=== PATIENT | female | born 1955 | race Caucasian/White ===

== ENCOUNTER 2023-06-03 09:00 | Outpatient (CLI) | payer MEDICARE, BC, SELFPAY | END 2023-06-03 09:01 | disposition home or self-care (01) | LOC: AMB 06-05 12:05 | PROVIDERS: PCP Family Medicine; Visit Provider Emergency Medicine | DX: R51.9 Headache, unspecified (principal) | CPT/HCPCS: A0425; A0427 ==

== ENCOUNTER 2023-06-03 09:28 | Emergency (ER) | payer MEDICARE, BC, SELFPAY ==
[2023-06-03] VITALS (18 sets, daily range): BP systolic 144–171; BP diastolic 91–123; PULSE 42–53; RESP 20; TEMP 36.3; O2SAT 94–97; BMI 45.4
--- NOTE | 2023-06-03 09:50 | CT_ITS ---
Patient: PERICO BARRETT Facility:?[facility] Patient ID:?[id number] Site Patient ID:?[id number]. Site :?[id number] Study:?CT-Head WITHOUT-06/03/2023 10:34:03 AM Ordering Physician:CAYETANO Final Report: INDICATION: DIZZINESS, ATAXIA TECHNIQUE: Head CT without contrast. COMPARISON: None. FINDINGS: CSF spaces: Mild global parenchymal volume loss. Brain parenchyma and extra-axial spaces: There are nonspecific low attenuation white matter changes consistent with chronic microvascular disease. No sign of mass effect, hemorrhage, or midline shift. Skull base and calvarium: The visualized paranasal sinuses and mastoid air cells demonstrate no acute or significant findings. The visualized orbits are grossly unremarkable. No skull fractures. IMPRESSION: 1. No evidence of acute intracranial abnormality on this unenhanced CT. 2. Mild chronic microvascular ischemic changes and global parenchymal volume loss. Please note that all CT scans at this facility use dose modulation, iterative reconstruction, and/or weight-based dosing when appropriate to reduce radiation dose to as low as reasonably achievable. Dictated by Tay Hernandez MD @ 06/03/2023 10:53:09 AM Signed by:?Tay Hernandez MD @06/03/2023 10:53:09 AM (Electronic Signature)
--- NOTE | 2023-06-03 09:50 | XR_ITS ---
Patient: PERICO BARRETT Facility:?[facility] Patient ID:?[id number] Site Patient ID:?[id number]. Site :?[id number] Study:?XRay-Chest 2 VIEW-06/03/2023 10:34:29 AM Ordering Physician:CAYETANO Final Report: INDICATION: DIZZINESS, ATAXIA TECHNIQUE: Chest 2 views. COMPARISON: None. FINDINGS: Cardiovascular and mediastinum: Mild enlargement of the cardiomediastinal silhouette. Lungs and pleural spaces: Mild right basilar atelectasis. No sign of pleural effusion. No pneumothorax. Bones and soft tissues: No significant findings. IMPRESSION: Mild cardiomegaly and mild right basilar atelectasis. Dictated by Tay Hernandez MD @ 06/03/2023 10:59:52 AM Signed by:?Tay Hernandez MD @06/03/2023 10:59:52 AM (Electronic Signature)
--- NOTE | 2023-06-03 09:52 | ED.GENADULT ---
HPI - General Adult General Date Seen: 06/03/23 Chief complaint: Dizziness/Vertigo Stated complaint: headache,uneven gait Time Seen by Provider: 06/03/23 09:41 History of Present Illness HPI narrative: I saw this patient arrival by EMS. History is obtained primarily from EMS providers. Per EMS this is a 68 year female that they brought in from home for evaluation of dizziness. She has had dizziness, ataxia, difficulty walking ongoing for the past couple of days. She also complained of a headache this morning. She was hypertensive with a blood pressure about 190 systolic according to EMS. She was bradycardia with heart rate around 50. They were able to establish an IV. They have begun 500 mL bolus saline. Patient is also endorsing urinary frequency. She has a headache. Unclear how that is been going on. No chest pain. No palpitations History from the patient is somewhat difficult to correlate with her current presentation. She says she has been sick since April 24, about 5 or 6 weeks ago. She lists multiple symptoms including intermittent diarrhea and constipation, urinary frequency (that is actually been going on for her ? whole life?). She has a headache. Unclear how long it has been going on. She had a cough but that stopped sometime in April. No current cough. No current chest pain. No current trouble breathing. No palpitations. She says she has been unsteady since she got up to go to the bathroom and middle the night a couple of nights ago. She says she sometimes has to lean to the side. She has been spending most of her time yesterday in bed but was able to get up and get to the bathroom and back and into the kitchen to eat. Ultimately it sounds like the dizziness is the main driving symptom that prompted her to call 911 today per. She is not really having spinning dizziness or definite sensation of movement to suggest vertigo. She says it is more like she gets lightheaded or almost might black out when she stands up. She does say that she needs to hold onto things when she walks. She is not having any focal weakness. No blurry vision or diplopia. No vomiting. She does have a headache. No known head trauma. She says she has a history of high blood pressure but does know what medication she is on. She had been on diuretics in the past but apparently was taken off them because of dizziness. She is also on a statin for high cholesterol. No diabetes. No known coronary disease. No history of stroke. No history of cancer. No history of kidney disease. No history liver disease. No history of autoimmune disease. Primary care is [place]. Related Data Home Medications Medication Instructions Recorded Confirmed atenolol 100 mg tablet 100 mg PO DAILY 06/03/23 06/03/23 atorvastatin 20 mg tablet 20 mg PO DAILY 06/03/23 06/03/23 hydrochlorothiazide 25 mg tablet 25 mg PO DAILY 06/03/23 06/03/23 Allergies Allergy/AdvReac Type Severity Reaction Status Date / Time amoxicillin Allergy Intermediate Unknown Verified 06/03/23 09:39 PFSH PFS Social History Non-prescribed substance use: denies use Exam Narrative: Exam Narrative: Constitutional: Appears well-developed and well-nourished. Alert. Initially somewhat passive on the bed. Lying in bed with her eyes closed as EMS provides report. When the nurses are getting her initial vital signs she is fairly passive. Subsequently when I asked her to sit up for posterior lung exam she is able to easily do so and after that much more alert, eyes open and bright and conversant. HENT: Head: Atraumatic. No depressed skull fracture, Raccoon Eyes, Pierre's sign, or hemotympanum. Face normal. TMs normal Nose: Nose normal. Mouth/Throat: Oral mucosa is clear and moist. no trismus. Pharynx normal. Tonsils symmetric. No tonsillar enlargement, erythema, or exudate. Eyes: Wearing glasses. Conjunctivae normal. EOM normal. Pupils equal, round, and reactive to light. No scleral icterus. Neck: Normal range of motion. Neck supple. No tracheal deviation present. No JVD. No palpable thyromegaly. Cardiovascular: Normal rate, regular rhythm. No gallop. No friction rub. No murmur heard. Symmetric radial artery pulses Pulmonary/Chest: Effort normal. No stridor. No respiratory distress. No wheezes. No rales. No rhonchi . No tenderness. Abdominal: Soft. Bowel sounds normal. No distension. No mass. No tenderness. No rebound. No guarding. No CVA tenderness. Musculoskeletal: RUE: Normal range of motion. No tenderness. No deformity LUE: Normal range of motion. No tenderness. No deformity RLE: Normal range of motion. No edema. No tenderness. No deformity LLE: Normal range of motion. No edema. No tenderness. No deformity Lymph: No cervical adenopathy. Neurological: Mental status normal. Attention normal. Alert and oriented x3. GCS 15. Memory normal. Speech fluent. Cognition normal. Cranial Nerves intact II-XII except I did not formally test gag or visual acuity. EOMI. Palate elevates symmetrically and tongue protrudes in the midline. Strength: 5/5 trapezius on the right and left 5/5 deltoid on the right and left 5/5 biceps on the right and left 5/5 triceps on the right and left 5/5 chemical processing laborer on the right and left 5/5 thumb opposition on the right and left 5/5 finger abduction on the right and left 5/5 hip flexors (L3) on the right and left 5/5 quadriceps (L4) on the right and left 5/5 tibialis anterior on the right and left 5/5 EHL (L5) on the right and left 5/5 gastrocnemius (S1) on the right and left 5/5 hamstring on the right and left Sensation intact to light touch in both upper extremities (C4-T1) Sensation intact to light touch in Both lower extremities (L4-S1). Finger to nose and coordination normal. Gait not assessable due to dizziness and overall weakness. She is able to sit herself up in bed by using both hands to pull on the bedside rales. Skin: Skin is warm and dry. No rash noted. No pallor. Normal capillary refill. Psychiatric: Normal mood. Initially somewhat flat affect and seems withdrawn. Subsequently more alert and conversant Const: Vital Signs, click to edit/add: Vital Signs - 24 hr 06/03/23 09:40 06/03/23 09:48 06/03/23 10:00 Temperature 97.3 F L Pulse Rate 45 L 42 L Pulse Rate [Pulse Oximeter] 53 L Respiratory Rate 20 Blood Pressure Blood Pressure [Le ft Forearm] 144/123 H Pulse Oximetry 96 95 95 Oxygen Delivery Me thod Room Air 06/03/23 10:26 06/03/23 10:30 06/03/23 10:48 Temperature Pulse Rate 48 L 44 L 45 L Pulse Rate [Pulse Oximeter] Respiratory Rate Blood Pressure 171/91 H Blood Pressure [Le ft Forearm] Pulse Oximetry 97 95 97 Oxygen Delivery Me thod 06/03/23 10:49 06/03/23 11:00 06/03/23 11:15 Temperature Pulse Rate 47 L 47 L 45 L Pulse Rate [Pulse Oximeter] Respiratory Rate Blood Pressure Blood Pressure [Le ft Forearm] Pulse Oximetry 97 95 95 Oxygen Delivery Me thod 06/03/23 11:30 06/03/23 11:45 06/03/23 12:00 Temperature Pulse Rate 45 L 45 L 47 L Pulse Rate [Pulse Oximeter] Respiratory Rate Blood Pressure Blood Pressure [Le ft Forearm] Pulse Oximetry 94 95 95 Oxygen Delivery Me thod 06/03/23 12:17 06/03/23 12:30 06/03/23 12:45 Temperature Pulse Rate 45 L 46 L 46 L Pulse Rate [Pulse Oximeter] Respiratory Rate Blood Pressure Blood Pressure [Le ft Forearm] Pulse Oximetry 96 95 95 Oxygen Delivery Me thod 06/03/23 13:00 06/03/23 13:15 06/03/23 13:30 Temperature Pulse Rate 47 L 46 L 50 L Pulse Rate [Pulse Oximeter] Respiratory Rate Blood Pressure Blood Pressure [Le ft Forearm] Pulse Oximetry 95 94 97 Oxygen Delivery Me thod Course Course ED Course: Recheck-feeling better after IV fluids. She is ambulatory in the hallway to go to the bathroom. Vital Signs Vital signs: Initial Vital Signs Temperature 97.3 F L 06/03/23 09:40 Temperature Source Temporal Artery Scan 06/03/23 09:40 Pulse Rate 53 L 06/03/23 09:40 Respiratory Rate 20 06/03/23 09:40 Blood Pressure 144/123 H 06/03/23 09:40 Blood Pressure Mean 130 H 06/03/23 09:40 Pulse Oximetry 96 06/03/23 09:40 Oxygen Delivery Method Room Air 06/03/23 09:40 Vital Signs Temperature 97.3 F L 06/03/23 09:40 Pulse Rate 53 L 06/03/23 09:40 Respiratory Rate 20 06/03/23 09:40 Blood Pressure 144/123 H 06/03/23 09:40 Pulse Oximetry 96 06/03/23 09:40 Oxygen Delivery Method Room Air 06/03/23 09:40 Temperature 97.3 F L 06/03/23 09:40 Pulse Rate 50 L 06/03/23 13:30 Respiratory Rate 20 06/03/23 09:40 Blood Pressure 171/91 H 03/12/24 10:48 Pulse Oximetry 97 06/03/23 13:30 Oxygen Delivery Method Room Air 06/03/23 09:40 Medications Administered Medications: Discontinued Medications Generic Name Dose Route Start Last Admin Trade Name Liz PRN Reason Stop Dose Admin Cephalexin HCl 500 mg 06/03/23 13:33 06/03/23 13:45 Cephalexin 500 Mg Capsule PO 06/03/23 13:34 500 mg ONCE ONE Administration Sodium Chloride 1,000 mls @ 1,000 mls/hr 06/03/23 10:00 06/03/23 11:12 0.9 % Sodium Chloride 1000 Ml IV 06/03/23 10:59 Infused .Q1H BHAVIN Infusion Ketorolac Tromethamine 15 mg 06/03/23 13:35 06/03/23 13:45 Ketorolac 15 Mg/Ml Inj IVP 06/03/23 13:36 15 mg ONCE ONE Administration Medical Decision Making MDM Narrative Medical decision making narrative: Pleasant 68-year-old female brought to the ER today from home by EMS. She has a long list of symptoms but her chief symptom among them is dizziness and trouble walking that is been ongoing for the past couple of days. In terms of the dizziness, she is not endorsing any vertigo type symptoms. No visible nystagmus. No other focal deficits such as diplopia, other brainstem deficit or any other clear signs of stroke. She does have hypertension. Initial blood pressure was 140/120 which I felt was inaccurate. Subsequent blood pressure was 179/90. We did do head CT scan which fortunately shows no sign of any acute intracranial hemorrhage or any obvious cerebral edema. At this point low likelihood for acute ischemic stroke but could not complete be completely ruled out without MRI. With dizziness ongoing for couple of days she is outside the window for IV tPA. She has also been having urinary frequency. Urinalysis is abnormal with scant amount of pyuria and also significant hematuria. Not much that of Chem Edgar in a evangelista on today's specimen. I do think this does represent a true UTI. Will treat with cephalexin 500 b.i.d. for 7 days. First dose administered here in the ER. At this point no clear evidence for urosepsis. EKG shows sinus rhythm and no arrhythmia because dizziness. Kidney function and electrolytes are normal. Blood sugar normal. She is not having any chest pain but consider atypical presentation of ACS. EKG is nonischemic and troponin is normal. Thyroid normal. At this point she is feeling better after IV fluid suggesting that probably a combination of dehydration and UTI or causing her dizziness. She feels comfortable discharging to home. Recommend return to the ER with any worsening dizziness or other symptoms of UTI such as fever, flank pain, nausea vomiting, or weakness. Need for outpatient follow-up to confirm resolution of hematuria. Questions answered. Patient comfortable plan for discharge and will do [facility] med prescription for cephalexin. Lab Data Labs: Lab Results 06/03/23 06/03/23 Range/Units 10:00 10:41 WBC 7.81 (4.50-11.00) K/uL RBC 4.55 (4.00-5.20) m/uL Hgb 13.4 (12.0-16.0) gm/dL Hct 40.5 (33.0-51.0) % MCV 89 (80-100) fL MCH 30 (26-34) pg MCHC 33 (32-36) gm/dL RDW Coeff of Jacob 13.6 (11.5-15.5) % Plt Count 266 (140-440) K/uL Neut % (Auto) 69.9 (42.0-72.0) % Lymph % (Auto) 18.8 L (20-44) % [place] % (Auto) 8.7 (0.0-11.0) % Eos % (Auto) 2.4 (0.0-7.0) % Baso % (Auto) 0.1 (0.0-3.0) % Neut # (Auto) 5.45 (1.7-7.0) K/uL Lymph # (Auto) 1.50 (0.90-2.90) K/uL [place] # (Auto) 0.70 (0.00-0.90) K/UL Eos # (Auto) 0.19 (0.00-0.50) K/uL Baso # (Auto) 0.01 (0.00-0.30) K/uL Abs Immat Gran (auto) 0.01 (0.00-0.30) K/uL Imm/Tot Granulo (auto) 0.1 % Sodium 138 (135-149) mmol/L Potassium 3.8 (3.6-5.1) mmol/L Chloride 105 (96-114) mmol/L Carbon Dioxide 26 (20-32) mmol/L Anion Gap 7 (7-15) mEq/L BUN 20 (7-30) mg/dL Creatinine 0.6 (0.5-1.5) mg/dL Estimated Creat Clear 51.63 Estimated GFR 97 ml/min Glucose 107 (60-115) mg/dL Lactate 1.2 (0.5-1.9) mmol/L Calcium 9.5 (8.4-10.6) mg/dL Troponin I < 0.01 L (0.01-0.04) ng/mL TSH 3.940 (0.270-4.200) uIU/mL Urine Color Brown A (Yellow) Urine Appearance Slightly Cloudy A (Clear) Urine pH 6.0 (5.0-8.5) Ur Specific [place] 1.025 (1.000-1.030) Urine Protein 3+ A (Negative) Urine Glucose (UA) Negative (Negative) Urine Ketones Negative (Negative) Urine Blood 3+ A (Negative) Urine Nitrite Negative (Negative) Urine Bilirubin 1+ A (Negative) Urine Urobilinogen 0.2 (0.2-1.0) Ur Leukocyte Esterase Negative (Negative) Urine RBC >100 A (0-2) Urine WBC 5-10 A (0-5) Ur Squamous Epith Cells Few (None-Few) Other Sediment MODERATE YEAST (None) Urine Bacteria Moderate A (None) Imaging Data CT scan - head: Attestation: I have reviewed the pertinent imaging results. Radiologist's impression: IMPRESSION: 1. No evidence of acute intracranial abnormality on this unenhanced CT. 2. Mild chronic microvascular ischemic changes and global parenchymal volume loss. Chest x-ray: Attestation: I have reviewed the pertinent imaging results. Radiologist's impression: IMPRESSION: Mild cardiomegaly and mild right basilar atelectasis. ECG Data Attestation: I personally reviewed and interpreted this ECG as follows: Interpretation: sinus bradycardia. 49 DC 140 QRS axis normal axis ST segment/T wave: no ST segment elevation/depression QTc: 411 Discharge Plan Discharge Clinical Impression: Hematuria, Dizziness, Cardiomegaly, Acute UTI, Hypertension Patient Disposition: Home, Self-Care Condition: Stable Instructions: Urinary Tract Infection in Women (ED), Hematuria (ED), Hypertension (ED) Additional Instructions: We suspect that a lot of your dizziness and symptoms are being caused by your urinary tract infection. Please take the antibiotic (cephalexin) twice daily for 7 days. This should treat your infection. Please follow-up with your doctor for repeat urine test after your infection is treated to make sure all of the blood is gone from your urine. We also notice that your blood pressure is higher than goal today. Continue on your blood pressure medications. Recheck your blood pressure with her doctor within the next 1-2 weeks. I suspect that your blood pressure is also causing mild enlargement of your heart. It is important to get your blood pressure under good control so that it does not cause further enlargement of your heart muscle. If you have worsening symptoms such as fever, weakness, worsening dizziness, nausea vomiting, or if you have any concerns, return to the ER right away Prescriptions: No Action atorvastatin 20 mg tablet 20 mg PO DAILY atenolol 100 mg tablet 100 mg PO DAILY hydrochlorothiazide 25 mg tablet 25 mg PO DAILY Follow Up/Referrals: Kajal Lopez DO [Primary Care Provider] - Stand Alone Forms: [employer] Info Instructions
[2023-06-03] MEDS: 0.9 % SODIUM CHLORIDE 1000 ml 1,000 ML IV (10:00)
[2023-06-03 10:12] LABS: Lactate Sepsis w/Reflex* 1.2 mmol/L (0.5-1.9)
[2023-06-03 10:21] LABS: Basophils Absolute Auto 0.01 K/uL (0.00-0.30); Basophils Percent Auto 0.1 % (0.0-3.0); Eosinophils Absolute Auto 0.19 K/uL (0.00-0.50); Eosinophils Percent Auto 2.4 % (0.0-7.0); Hematocrit 40.5 % (33.0-51.0); Hemoglobin* 13.4 gm/dL (12.0-16.0); Immature Granulocytes Abs Auto 0.01 K/uL (0.00-0.30); Immature Granulocytes Pct Auto 0.1 %; Lymphocytes Percent Auto 18.8 % (20-44); Mean Corpuscular HGB Conc 33 gm/dL (32-36); Mean Corpuscular Hemoglobin 30 pg (26-34); Mean Corpuscular Volume 89 fL (80-100); Monocytes Percent Auto 8.7 % (0.0-11.0); Neutrophils Absolute Auto 5.45 K/uL (1.7-7.0); Neutrophils Percent Auto 69.9 % (42.0-72.0); Platelet Count* 266 K/uL (140-440); RDW Coefficient of Variation % 13.6 % (11.5-15.5); Red Blood Count 4.55 m/uL (4.00-5.20); White Blood Count* 7.81 K/uL (4.50-11.00)
[2023-06-03 10:24] LABS: Slide Review Reflex No
[2023-06-03 10:39] LABS: Chloride* 105 mmol/L (96-114); Potassium* 3.8 mmol/L (3.6-5.1); Sodium* 138 mmol/L (135-149)
[2023-06-03 10:41] LABS: Creatinine* 0.6 mg/dL (0.5-1.5); Est. Creatinine Clearance* 51.63; Estimated Glomerular Filt Rate 97 ml/min
[2023-06-03 10:42] LABS: Anion Gap 7 mEq/L (7-15); Blood Urea Nitrogen* 20 mg/dL (7-30); Calcium* 9.5 mg/dL (8.4-10.6); Carbon Dioxide* 26 mmol/L (20-32); Glucose* 107 mg/dL (60-115)
[2023-06-03 10:50] LABS: Appearance Urine Slightly Cloudy (Clear); Bilirubin Urine 1+ (Negative); Blood Urine 3+ (Negative); Color Urine Brown (Yellow); Glucose Urine Negative (Negative); Ketones Urine Negative (Negative); Leukocyte Esterase Urine Negative (Negative); Nitrite Urine Negative (Negative); Protein Urine 3+ (Negative); Specific Gravity Urine 1.025 (1.000-1.030); Urobilinogen Urine 0.2 (0.2-1.0)
[2023-06-03 10:59] LABS: Troponin I* < 0.01 ng/mL (0.01-0.04)
[2023-06-03 11:02] LABS: RBC Urine >100 (0-2)
[2023-06-03 11:03] LABS: Bacteria Urine Moderate; Other Sediment Urine MODERATE YEAST; Squamous Epithelial Cell Urine Few (None-Few)
[2023-06-03] MEDS: KETOROLAC 15 MG/ML inj IVP (13:45)
[2023-06-03] MEDS: cephALEXin 500 MG CAPSULE PO (13:45)
== END 2023-06-03 15:00 | disposition home or self-care (01) ==
PROVIDERS: Emergency Provider Emergency Medicine; PCP Family Medicine
DX: N39.0 Urinary tract infection, site not specified (principal); R31.9 Hematuria, unspecified; I51.7 Cardiomegaly; I10 Essential (primary) hypertension
CPT/HCPCS: 36415; 70450; 71046; 80048; 81001; 83605; 84443; 84484; 85025; 87086; 93005; 96361; 96374; 99284; 99285; A9270; J1885; J7030

== ENCOUNTER 2023-07-18 07:32 | Emergency (ER) | payer MEDICARE, BC, SELFPAY ==
[2023-07-18 07:34] VITALS: BP 166/94; PULSE 57; RESP 18; TEMP 35.4; O2SAT 95; BMI 45.4
--- NOTE | 2023-07-18 08:06 | ED_ITS ---
HPI - General Adult General Chief complaint: Nausea/Vomiting Stated complaint: gagging / sore neck Time Seen by Provider: 07/18/23 07:54 History of Present Illness HPI narrative: This 68-year-old female comes in reporting chronic neck pain and recurrent gagging and nausea. She states that these are ongoing symptoms and that she has not taken any medications for them. She denies having any recent injury event or strenuous activity to trigger neck pain. She states that the neck pain seems to come and go but it has been more significant recently and she states that she did not sleep much last night because of the neck pain. She does not report any pain radiating down either arm. Similarly her nausea and vomiting episodes are not new for her. She arrives here with reassuring vital signs. Related Data Home Medications Medication Instructions Recorded Confirmed atenolol 100 mg tablet 100 mg PO DAILY 06/03/23 07/18/23 atorvastatin 20 mg tablet 20 mg PO DAILY 06/03/23 07/18/23 fluoxetine 20 mg capsule 60 mg PO QAM 07/18/23 07/18/23 Previous Rx's Medication Instructions Recorded cyclobenzaprine 10 mg tablet 10 mg PO TID #15 tabs 07/18/23 ketorolac 10 mg tablet 10 mg PO Q8H 5 days #15 tabs 07/18/23 methylprednisolone 4 mg tablets in See Rx Instructions PO .COMPLEX 07/18/23 a dose pack (Medrol (Elias)) #21 ea ondansetron HCl 4 mg tablet 4 mg PO Q6H #20 tabs 07/18/23 Allergies Allergy/AdvReac Type Severity Reaction Status Date / Time amoxicillin Allergy Intermediate Unknown Verified 07/18/23 07:40 Review of Systems Status of ROS: Reports: 10 or more systems reviewed and unremarkable except as noted in History and below Narrative: Constitutional: No fevers, no weight gain or loss. Eyes: No discharge. No vision changes. HENT: No congestion, no sore throat, no ear pain. Cardiovascular: No chest pain, no palpitations. Respiratory: No shortness of breath, no wheezes, no cough. Gastrointestinal: No abdominal pain, no diarrhea. Nausea and dry heaves. Genitourinary: No dysuria, no hematuria. Musculoskeletal: Normal range of motion. She reports chronic neck pain. Skin: No rashes, no pruritis. Neurological: No dizziness, weakness, sensory change, speech change. Endo/Heme/Allergies: No bruising or bleeding. No polydipsia. Pysch: no suicidality, no anxiety, no insomnia. All other systems reviewed and are negative. [facility] Medical History (Updated 07/18/23 @ 08:11 by Rey Barrientos MD) Hyperlipemia ?E78.5 - Hyperlipidemia, unspecified (ICD-10) Tachycardia ?R00.0 - Tachycardia, unspecified (ICD-10) Hypertension ?I10 - Essential (primary) hypertension (ICD-10) Depression ?F32.A - Depression, unspecified (ICD-10) Social History Smoking Status: Former smoker Do you use any of these nicotine containing products: None How often do you have a drink containing alcohol: never AUDIT-C Alcohol total score: 0 Non-prescribed substance use: denies use Exam Narrative: Exam Narrative: Constitutional: Well-developed, well-nourished, no acute distress. HEENT: Normocephalic, atraumatic. Neck: Normal range of motion. Supple. Diffuse tenderness in the posterior neck. No midline tenderness when palpating along the spine. Heart: Regular. No murmurs. Normal rate. Intact distal pulses. Lungs: Clear to auscultation. No chest discomfort. No wheezes, rhonchi, or rales. Abdomen: Normal bowel sounds. Nontender. No rebound tenderness. Genitalia: Deferred. Back: No midline tenderness. Normal range of motion. Extremities: Normal range of motion. No injury. Skin: Intact. No rash. Warm. No erythema or pallor. Neurologic: No altered sensation. No weakness. Alert and oriented. Psychiatric: No suicidality. No anxiety or depression. No insomnia. Nursing notes and vitals signs are reviewed. Const: Vital Signs, click to edit/add: Vital Signs - 24 hr 07/18/23 07:34 Temperature 95.7 F L Pulse Rate [Pulse Oximeter] 57 L Respiratory Rate 18 Blood Pressure [Ri ght Upper Arm] 166/94 H Pulse Oximetry 95 Oxygen Delivery Me thod Room Air Course Vital Signs Vital signs: Initial Vital Signs Temperature 95.7 F L 07/18/23 07:34 Temperature Source Temporal Artery Scan 07/18/23 07:34 Pulse Rate 57 L 07/18/23 07:34 Respiratory Rate 18 07/18/23 07:34 Blood Pressure 166/94 H 07/18/23 07:34 Blood Pressure Mean 118 H 07/18/23 07:34 Blood Pressure Position Sitting 07/18/23 07:34 Pulse Oximetry 95 07/18/23 07:34 Oxygen Delivery Method Room Air 07/18/23 07:34 Vital Signs Temperature 95.7 F L 07/18/23 07:34 Pulse Rate 57 L 07/18/23 07:34 Respiratory Rate 18 07/18/23 07:34 Blood Pressure 166/94 H 07/18/23 07:34 Pulse Oximetry 95 07/18/23 07:34 Oxygen Delivery Method Room Air 07/18/23 07:34 Temperature 95.7 F L 07/18/23 07:34 Pulse Rate 57 L 07/18/23 07:34 Respiratory Rate 18 07/18/23 07:34 Blood Pressure 166/94 H 07/18/23 07:34 Pulse Oximetry 95 07/18/23 07:34 Oxygen Delivery Method Room Air 07/18/23 07:34 Medical Decision Making MDM Narrative Medical decision making narrative: This patient comes in with chronic symptoms of nausea and vomiting with neck pain as described above. I did discuss lab and imaging options but these were dismissed for now. The patient is interested in having some treatment for her symptoms. I did prescribe Zofran, Toradol, Flexeril, and Medrol Dosepak. I advised her to follow-up with her primary physician and consider physical therapy. Discharge Plan Discharge Clinical Impression: Neck pain, Nausea & vomiting Patient Disposition: Home, Self-Care Condition: Stable Additional Instructions: Take medication as needed and indicated. Follow-up with primary physician for ongoing management. Return if worsening symptoms occur. Prescriptions: New cyclobenzaprine 10 mg tablet 10 mg PO TID Qty: 15 0RF ondansetron HCl 4 mg tablet 4 mg PO Q6H Qty: 20 0RF ketorolac 10 mg tablet 10 mg PO Q8H 5 Days Qty: 15 0RF methylprednisolone [Medrol (Elias)] 4 mg tablets,dose pack See Rx Instructions .ROUTE .COMPLEX Qty: 21 0RF Rx Instructions: orally per package directions No Action atorvastatin 20 mg tablet 20 mg PO DAILY atenolol 100 mg tablet 100 mg PO DAILY fluoxetine 20 mg capsule 60 mg PO QAM Follow Up/Referrals: Kajal Lopez DO [Primary Care Provider] - Stand Alone Forms: [employer] Info Instructions
== END 2023-07-18 08:22 | disposition home or self-care (01) ==
LOC: ED 08:14
PROVIDERS: Emergency Provider Emergency Medicine Emergency Medical Services; PCP Family Medicine
DX: M54.2 Cervicalgia (principal); R11.2 Nausea with vomiting, unspecified
CPT/HCPCS: 99283; 99284

== ENCOUNTER 2024-04-20 04:47 | Emergency (ER) | payer MEDICARE, BC, SELFPAY ==
[2024-04-20] VITALS (11 sets, daily range): BP systolic 170–238; BP diastolic 112–160; PULSE 56–68; RESP 20–21; TEMP 36.5; O2SAT 94–97; BMI 48.4
[2024-04-20 05:19] LABS: Lactate Sepsis w/Reflex* 4.2 mmol/L (0.5-1.9)
[2024-04-20 05:21] LABS: Creatinine, Point-of-Care* 0.7 mg/dl (0.6-1.3)
--- NOTE | 2024-04-20 05:21 | ED.GENADULT ---
HPI - General Adult General Chief complaint: Urogenital Problems, Female Stated complaint: bladder infection Time Seen by Provider: 04/20/24 05:21 History of Present Illness HPI narrative: Shortness of breath and urinary urgency and frequency. Pt is clammy and cold. Pt states she has trouble with UTI's 69-year-old woman presenting to the emergency department just not feeling so well. A couple of days ago she started have a back ache. She already notes that she has a little trouble controlling her urine but became more difficult than. She has not measured a fever. No other area of pain. She is not having abdominal pain. She is not nauseated. Does mention that she has had urinary tract infections before. Denies any rashes. Seen less this facility in June 2019 for at before that of May of the same year with a urinary tract infection though culture results were mixed. She is noted to be short of breath on transfer to the bed. When questioned about her blood pressure she is not particularly surprised that it is rather elevated here today. Informed by nursing of arrival and to start normal saline. She is reporting that she is feeling a little better already. Related Data Home Medications ?Medication ?Instructions ?Recorded ?Confirmed atenolol 100 mg tablet 100 mg PO DAILY 06/03/23 07/18/23 atorvastatin 20 mg tablet 20 mg PO DAILY 06/03/23 07/18/23 fluoxetine 20 mg capsule 60 mg PO QAM 07/18/23 07/18/23 Previous Rx's ?Medication ?Instructions ?Recorded cyclobenzaprine 10 mg tablet 10 mg PO TID #15 tabs 07/18/23 ketorolac 10 mg tablet 10 mg PO Q8H 5 days #15 tabs 07/18/23 methylprednisolone 4 mg tablets in See Rx Instructions PO .COMPLEX 07/18/23 a dose pack (Medrol (Elias)) #21 ea ondansetron HCl 4 mg tablet 4 mg PO Q6H #20 tabs 07/18/23 Allergies Allergy/AdvReac Type Severity Reaction Status Date / Time amoxicillin Allergy Intermediate Unknown Verified 04/20/24 04:58 Review of Systems Status of ROS: Reports: 6 or more systems reviewed and unremarkable except as noted in History and below [facility] PFS Medical History Hyperlipemia ?E78.5 - Hyperlipidemia, unspecified (ICD-10) Tachycardia ?R00.0 - Tachycardia, unspecified (ICD-10) Hypertension ?I10 - Essential (primary) hypertension (ICD-10) Depression ?F32.A - Depression, unspecified (ICD-10) Social History Smoking Status: Former smoker Do you use any of these nicotine containing products: None How often do you have a drink containing alcohol: never AUDIT-C Alcohol total score: 0 Non-prescribed substance use: denies use Exam Narrative: Exam Narrative: Pleasant. NAD. Appears a little tired. But alerts to answer questions quickly. Dentition in disrepair. Oropharynx is sticky. Skin is warm and dry. Heart is in regular rate and rhythm. Distant. Lungs appear to be clear. Abdomen is soft and nontender. Obese. Lower extremities with excessive fatty tissue but are without edema. Is well-perfused peripherally. Toenails are excessively long Const: Vital Signs, click to edit/add: Vital Signs - 24 hr 04/20/24 04:52 04/20/24 05:14 04/20/24 05:32 Temperature 97.7 F Pulse Rate 60 Pulse Rate [Right Pulse Oximeter] 61 Respiratory Rate 21 Blood Pressure 202/118 H Blood Pressure [Ri ght Upper Arm] 238/123 H Pulse Oximetry 94 95 94 Oxygen Delivery Me thod Room Air 04/20/24 06:02 04/20/24 06:32 04/20/24 06:33 Temperature Pulse Rate 64 58 L 56 L Pulse Rate [Right Pulse Oximeter] Respiratory Rate 20 Blood Pressure 204/112 H 191/119 H Blood Pressure [Ri ght Upper Arm] Pulse Oximetry 95 95 95 Oxygen Delivery Me thod 04/20/24 07:00 04/20/24 07:02 04/20/24 07:03 Temperature Pulse Rate 68 63 63 Pulse Rate [Right Pulse Oximeter] Respiratory Rate Blood Pressure 170/160 H Blood Pressure [Ri ght Upper Arm] Pulse Oximetry 95 97 96 Oxygen Delivery Me thod 04/20/24 07:16 04/20/24 07:33 Temperature Pulse Rate Pulse Rate [Right Pulse Oximeter] Respiratory Rate Blood Pressure 212/128 H 210/139 H Blood Pressure [Ri ght Upper Arm] Pulse Oximetry Oxygen Delivery Me thod Documenting provider has reviewed patient's vital signs: yes Course Vital Signs Vital signs: Initial Vital Signs Temperature 97.7 F 04/20/24 04:52 Temperature Source Temporal Artery Scan 04/20/24 04:52 Pulse Rate 61 04/20/24 04:52 Pulse Rhythm Regular 04/20/24 04:52 Pulse Strength 3+ Normal 04/20/24 04:52 Respiratory Rate 21 04/20/24 04:52 Blood Pressure 238/123 H 04/20/24 04:52 Blood Pressure Mean 161 H 04/20/24 04:52 Blood Pressure Position Supine 04/20/24 04:52 Pulse Oximetry 94 04/20/24 04:52 Oxygen Delivery Method Room Air 04/20/24 04:52 Vital Signs Temperature 97.7 F 04/20/24 04:52 Pulse Rate 61 04/20/24 04:52 Respiratory Rate 21 04/20/24 04:52 Blood Pressure 238/123 H 04/20/24 04:52 Pulse Oximetry 94 04/20/24 04:52 Oxygen Delivery Method Room Air 04/20/24 04:52 Temperature 97.7 F 04/20/24 04:52 Pulse Rate 63 04/20/24 07:03 Respiratory Rate 20 04/20/24 06:32 Blood Pressure 210/139 H 04/20/24 07:33 Pulse Oximetry 96 04/20/24 07:03 Oxygen Delivery Method Room Air 04/20/24 04:52 Medications Administered Medications: Discontinued Medications Generic Name Dose Route Start Last Admin Trade Name Freq PRN Reason Stop Dose Admin Amlodipine Besylate 5 mg 04/20/24 08:04 04/20/24 08:24 Amlodipine 5 Mg Tablet PO 04/20/24 08:05 5 mg ONCE ONE Administration Sodium Chloride 1,000 mls @ 1,000 mls/hr 04/20/24 05:37 04/20/24 06:18 0.9 % Sodium Chloride 1000 Ml IV 04/20/24 06:36 Infused .Q1H ONE Infusion Lactated Ringer's 1,000 mls @ 1,000 mls/hr 04/20/24 05:37 04/20/24 07:04 Lactated Ringers 1000 Ml IV 04/20/24 06:36 Infused .Q1H ONE Infusion Ceftriaxone Sodium 1 gm/ 100 mls @ 200 mls/hr 04/20/24 05:38 04/20/24 06:18 Sodium Chloride IVPB 04/20/24 05:39 Infused ONCE ONE Infusion Medical Decision Making MDM Narrative Medical decision making narrative: Appears to be describing symptoms of urinary tract infection. Blood pressure is rather elevated. May have evolving sepsis picture. Back discomfort may well be chronic. Body habitus would contribute. I think is also rather deconditioned as explanation for shortness of breath. Initiated on IV fluids. Initial lactate returns at 4.2. Urinalysis looks positive for infection however without nitrate and only with trace leukocyte esterase. Last collection here looks similar, although admittedly today looks worse, did not grow out useful cultures. I wonder how much of this might be chronic. Received L normal saline as well as L of lactated Ringer's. Given a g of Rocephin IV. Recheck of lactate is 2.1. White count is normal. Noting high blood pressures I review medications. Also finding clinical documentation to confirm. Appears to take atenolol in part for tachycardia as well as losartan. Notes that blood pressure tends to be high. She is not being seen regularly in clinic she reports. Is unsure of primary care provider. Given dose of amlodipine 5 mg here in the emergency department. Is requesting departure prior to seeing effect. Reportedly feels quite well. I do spend some time trimming all toenails Noted to be transferring and briefly appears winded. I think this is baseline. To patient discharge plan for further discussion Please do schedule follow-up with primary care at your clinic. You need to review your plan for blood pressure medication. You might try lower dose amlodipine. He received a dose of that here today in the emergency department. I would encourage you to check your blood pressure later today, maybe in a couple of hours. Prescribing you the antibiotic cephalexin from [facility]. A urine culture will be pending here. If it appears that the choice of antibiotic needs to be changed, we will call you. Omeprazole is typically not a medication you just take one day and not the next; it usually takes a little more time to work. Medication that you might take for heartburn at the time you feel it, would be something like famotidine instead. However if omeprazole seems to work for you, I guess that is fine. Medical Records Medical records reviewed: Yes I reviewed the patient's medical records Lab Data Lab results reviewed: Yes I reviewed the patient's lab results Labs: Lab Results 04/20/24 04/20/24 04/20/24 Range/Units 05:00 05:07 05:08 WBC 10.80 (4.50-11.00) K/uL RBC 5.34 H (4.00-5.20) m/uL Hgb 15.3 (12.0-16.0) gm/dL Hct 45.7 (33.0-51.0) % MCV 86 (80-100) fL MCH 29 (26-34) pg MCHC 34 (32-36) gm/dL RDW Coeff of Jacob 12.8 (11.5-15.5) % Plt Count 270 (140-440) K/uL Neut % (Auto) 73.8 H (42.0-72.0) % Lymph % (Auto) 16.1 L (20-44) % Obion % (Auto) 8.1 (0.0-11.0) % Eos % (Auto) 1.5 (0.0-7.0) % Baso % (Auto) 0.3 (0.0-3.0) % Neut # (Auto) 8.00 H (1.7-7.0) K/uL Lymph # (Auto) 1.70 (0.90-2.90) K/uL Obion # (Auto) 0.90 (0.00-0.90) K/UL Eos # (Auto) 0.16 (0.00-0.50) K/uL Baso # (Auto) 0.03 (0.00-0.30) K/uL Abs Immat Gran (auto) 0.02 (0.00-0.30) K/uL Imm/Tot Granulo (auto) 0.2 % Sodium 138 (135-149) mmol/L Potassium 4.1 (3.6-5.1) mmol/L Chloride 104 (96-114) mmol/L Carbon Dioxide 19 L (20-32) mmol/L Anion Gap 15 (7-15) mEq/L BUN 16 (7-30) mg/dL Creatinine 0.6 (0.5-1.5) mg/dL Estimated Creat Clear 49.00 Estimated GFR 97 ml/min Glucose 128 H (60-115) mg/dL Lactate 4.2 H* (0.5-1.9) mmol/L Calcium 9.6 (8.4-10.6) mg/dL NT-Pro-B Natriuret Pep 656 pg/mL Urine Color Yellow (Yellow) Urine Appearance Cloudy A (Clear) Urine pH 6.5 (5.0-8.5) Ur Specific Williamson 1.025 (1.000-1.030) Urine Protein 2+ A (Negative) Urine Glucose (UA) Negative (Negative) Urine Ketones Negative (Negative) Urine Blood 2+ A (Negative) Urine Nitrite Negative (Negative) Urine Bilirubin Negative (Negative) Urine Urobilinogen 0.2 (0.2-1.0) Ur Leukocyte Esterase Trace A (Negative) Urine RBC 50-100 A (0-2) Urine WBC 25-50 A (0-5) Ur Squamous Epith Cells Many A (None-Few) Amorphous Sediment Few A (None) Urine Bacteria Few A (None) SARS-CoV-2 (PCR) (Negative) Influenza Type A (PCR) (Negative) Influenza Type B (PCR) (Negative) RSV (PCR) (Negative) Lab Acknowledgement POC Creatinine 0.7 (0.6-1.3) mg/dl 04/20/24 04/20/24 04/20/24 Range/Units 05:40 05:45 06:58 WBC (4.50-11.00) K/uL RBC (4.00-5.20) m/uL Hgb (12.0-16.0) gm/dL Hct (33.0-51.0) % MCV (80-100) fL MCH (26-34) pg MCHC (32-36) gm/dL RDW Coeff of Jacob (11.5-15.5) % Plt Count (140-440) K/uL Neut % (Auto) (42.0-72.0) % Lymph % (Auto) (20-44) % Obion % (Auto) (0.0-11.0) % Eos % (Auto) (0.0-7.0) % Baso % (Auto) (0.0-3.0) % Neut # (Auto) (1.7-7.0) K/uL Lymph # (Auto) (0.90-2.90) K/uL Obion # (Auto) (0.00-0.90) K/UL Eos # (Auto) (0.00-0.50) K/uL Baso # (Auto) (0.00-0.30) K/uL Abs Immat Gran (auto) (0.00-0.30) K/uL Imm/Tot Granulo (auto) % Sodium (135-149) mmol/L Potassium (3.6-5.1) mmol/L Chloride (96-114) mmol/L Carbon Dioxide (20-32) mmol/L Anion Gap (7-15) mEq/L BUN (7-30) mg/dL Creatinine (0.5-1.5) mg/dL Estimated Creat Clear Estimated GFR ml/min Glucose (60-115) mg/dL Lactate 2.1 H (0.5-1.9) mmol/L Calcium (8.4-10.6) mg/dL NT-Pro-B Natriuret Pep pg/mL Urine Color (Yellow) Urine Appearance (Clear) Urine pH (5.0-8.5) Ur Specific Williamson (1.000-1.030) Urine Protein (Negative) Urine Glucose (UA) (Negative) Urine Ketones (Negative) Urine Blood (Negative) Urine Nitrite (Negative) Urine Bilirubin (Negative) Urine Urobilinogen (0.2-1.0) Ur Leukocyte Esterase (Negative) Urine RBC (0-2) Urine WBC (0-5) Ur Squamous Epith Cells (None-Few) Amorphous Sediment (None) Urine Bacteria (None) SARS-CoV-2 (PCR) Negative SARS-CoV-2 (Negative) Influenza Type A (PCR) Negative PCR FLU A (Negative) Influenza Type B (PCR) Negative PCR FLU B (Negative) RSV (PCR) Negative PCR RSV (Negative) Lab Acknowledgement Test Added POC Creatinine (0.6-1.3) mg/dl Discharge Plan Discharge Clinical Impression: UTI (urinary tract infection), High blood pressure, Dehydration Patient Disposition: Home, Self-Care Condition: Improved Additional Instructions: Please do schedule follow-up with primary care at your clinic. You need to review your plan for blood pressure medication. You might try lower dose amlodipine. He received a dose of that here today in the emergency department. I would encourage you to check your blood pressure later today, maybe in a couple of hours. Prescribing you the antibiotic cephalexin from [facility]. A urine culture will be pending here. If it appears that the choice of antibiotic needs to be changed, we will call you. Omeprazole is typically not a medication you just take one day and not the next; it usually takes a little more time to work. Medication that you might take for heartburn at the time you feel it, would be something like famotidine instead. However if omeprazole seems to work for you, I guess that is fine. Prescriptions: No Action atorvastatin 20 mg tablet 20 mg PO DAILY atenolol 100 mg tablet 100 mg PO DAILY fluoxetine 20 mg capsule 60 mg PO QAM cyclobenzaprine 10 mg tablet 10 mg PO TID Qty: 15 0RF ondansetron HCl 4 mg tablet 4 mg PO Q6H Qty: 20 0RF ketorolac 10 mg tablet 10 mg PO Q8H 5 Days Qty: 15 0RF methylprednisolone [Medrol (Elias)] 4 mg tablets,dose pack See Rx Instructions .ROUTE .COMPLEX Qty: 21 0RF Rx Instructions: orally per package directions Follow Up/Referrals: Kajal Lopez DO [Primary Care Provider] - Stand Alone Forms: [employer]oopl Info Instructions
[2024-04-20 05:24] LABS: Appearance Urine Cloudy (Clear); Bilirubin Urine Negative (Negative); Blood Urine 2+ (Negative); Color Urine Yellow (Yellow); Glucose Urine Negative (Negative); Ketones Urine Negative (Negative); Leukocyte Esterase Urine Trace (Negative); Nitrite Urine Negative (Negative); Protein Urine 2+ (Negative); Specific Gravity Urine 1.025 (1.000-1.030); Urobilinogen Urine 0.2 (0.2-1.0); pH Urine 6.5 (5.0-8.5)
[2024-04-20 05:33] LABS: Amorphous Sediment Urine Few; Bacteria Urine Few; RBC Urine 50-100 (0-2); Squamous Epithelial Cell Urine Many (None-Few); WBC Urine 25-50 (0-5)
[2024-04-20 05:39] LABS: Chloride* 104 mmol/L (96-114); Potassium* 4.1 mmol/L (3.6-5.1); Sodium* 138 mmol/L (135-149)
[2024-04-20 05:42] LABS: Anion Gap 15 mEq/L (7-15); Blood Urea Nitrogen* 16 mg/dL (7-30); Carbon Dioxide* 19 mmol/L (20-32); Creatinine* 0.6 mg/dL (0.5-1.5); Estimated Glomerular Filt Rate 97 ml/min; Glucose* 128 mg/dL (60-115)
[2024-04-20 05:43] LABS: Calcium* 9.6 mg/dL (8.4-10.6)
[2024-04-20] MEDS: cefTRIAXone 1 GM in 0.9 % SODIUM CHLORIDE Mini-bag 100 ML IVPB (05:45)
[2024-04-20] MEDS: 0.9 % SODIUM CHLORIDE 1000 ml 1,000 ML IV (05:45)
[2024-04-20 05:47] LABS: Basophils Absolute Auto 0.03 K/uL (0.00-0.30); Basophils Percent Auto 0.3 % (0.0-3.0); Eosinophils Absolute Auto 0.16 K/uL (0.00-0.50); Eosinophils Percent Auto 1.5 % (0.0-7.0); Hematocrit 45.7 % (33.0-51.0); Hemoglobin* 15.3 gm/dL (12.0-16.0); Immature Granulocytes Abs Auto 0.02 K/uL (0.00-0.30); Immature Granulocytes Pct Auto 0.2 %; Lymphocytes Percent Auto 16.1 % (20-44); Mean Corpuscular HGB Conc 34 gm/dL (32-36); Mean Corpuscular Hemoglobin 29 pg (26-34); Mean Corpuscular Volume 86 fL (80-100); Monocytes Percent Auto 8.1 % (0.0-11.0); Neutrophils Percent Auto 73.8 % (42.0-72.0); Platelet Count* 270 K/uL (140-440); RDW Coefficient of Variation % 12.8 % (11.5-15.5); Red Blood Count 5.34 m/uL (4.00-5.20)
[2024-04-20 05:49] LABS: Slide Review Reflex No
[2024-04-20] MEDS: LACTATED RINGERS 1000 ML 1,000 ML IV (06:18)
[2024-04-20 06:25] LABS: NT Pro B Type NatriureticPept* 656 pg/mL
[2024-04-20 06:31] LABS: PCR FLU A Negative PCR FLU A (Negative); PCR FLU B Negative PCR FLU B (Negative); PCR RSV Negative PCR RSV (Negative); SARS PCR* Negative SARS-CoV-2 (Negative)
[2024-04-20 07:02] LABS: Lactate Sepsis 2 Hour 2.1 mmol/L (0.5-1.9)
[2024-04-20] MEDS: AMLODIPINE 5 MG TABLET PO (08:24)
== END 2024-04-20 09:00 | disposition home or self-care (01) ==
PROVIDERS: Emergency Provider Family Medicine; PCP Family Medicine
DX: N39.0 Urinary tract infection, site not specified (principal); R03.0 Elevated blood-pressure reading, without diagnosis of hypertension; E86.0 Dehydration
CPT/HCPCS: 36415; 80048; 81001; 82565; 83605; 83880; 85025; 87040; 87086; 87631; 94761; 96365; 99284; A9270; J0696; J7030; J7120

== ENCOUNTER 2024-08-24 19:55 | Emergency (ER) | payer MEDICARE, BC, SELFPAY ==
--- OUTSIDE RECORDS SUMMARY | 2024-08-24 19:57 | XMS_ITS | Clinical Summary ---
Author Organization [facility] Address [facility] [place] [address] Care Team Providers Care Steak Tenderizer Machine Name Role Phone JohnKajal yuen Primary Care Provider [phone] Allergies Active Allergy Reactions Criticality Noted Date Comments Amoxicillin 12/24/2006 upset stomach Medications Blood Pressure Monitor KitIndications:Ess ential hypertension Frequency of testin-2 times per day 1 Each 4 Active ketoconazole 2 % creamIndications:Y east infection of the skin Use daily around breast/groin area as needed for rash 60 g 1 4 Active FLUoxetine (PROZAC) 20 mg capsuleIndications :Mixed obsessional thoughts and acts,MDD (major depressive disorder), recurrent episode, mild,Hoarding disorder Take 1 Capsule (20 mg) by mouth at bedtime. 90 Capsule 2 5 Active atorvastatin (LIPITOR) 20 mg tabletIndications: Hyperlipidemia, unspecified hyperlipidemia type Take 1 Tablet (20 mg) by mouth at bedtime. 90 Tablet 3 5 Active atenoloL (TENORMIN) 100 mg tabletIndications: Essential hypertension Take 1 Tablet (100 mg) by mouth once daily. 90 Tablet 3 5 Active losartan (COZAAR) 50 mg tabletIndications: Essential hypertension Take 1 Tablet (50 mg) by mouth once daily. 90 Tablet 3 5 Active Active Problems Problem Noted Date Diagnosed Date Paroxysmal tachycardia 05/20/2024 Tremor 05/20/2024 MDD (major depressive disorder), recurrent episo de, mild 01/24/2023 Obesity, morbid 12/20/2021 Prediabetes 06/26/2011 Vitamin D deficiency 05/03/2009 Unspecified essential hypertension 12/24/2006 Obsessive-compulsive disorders 12/24/2006 Resolved Problems Problem Noted Date Diagnosed Date Resolved Date Bereavement, uncomplicated 07/22/2011 0 07/12/2014 Adjustment disorder with mix ed anxiety and depressed mood 11/26/2010 05/20/2024 Encounters Date Type Department Care Team Description 08/24/2024 Telephone [facility] [address] [place] [address] Kajal Lopez, Questions 05/26/2024 Orders Only [facility] [address] [place] [address] Kajal Lopez, DO <No scans attached> from Last 3 Months Immunizations Immunization Administration Dates Next Due COVID-19 VACCINE SPIKEVAX (M ODERNA 50MCG/0.5ML) 12YO+ PFS 05/20/2024,04/23/2023 COVID-19 vaccine (Pfizer-Bio NTech 30mcg/0.3mL) 12YO+ BIVALENT PF, MDV 12/20/2021 Influenza A (H1N1), Inactivated 04/24/2009 Influenza A (H1N1), Inactiva yomaira (Age >=3 Years) 04/24/2009 Influenza Virus, Unspecified 01/14/2018 Influenza, High-dose Inactivated 03/10/2019 Influenza, IIV3 (Age 6-35 mos) 04/24/2009 Influenza, IIV3 (Age >=3 years) 01/04/2013,04/24,01/15/2008 Influenza, IIV4 01/14/2018,01/23/2016 Influenza, Inactivated AIIV4 (Age 65+ Years) Preserv Free 04/23/2023,12/20/2021,11/30/2020,2019 Influenza, Inactivated IIV3 (Age 65+ Years) Preserv Free 05/20/2024 Pneumococcal Conj 20-valent (Prevnar 20) 04/23/2023 Pneumococcal Poly,23-Valent (Pneumovax) 11/30/2020 Td (Age >=7 Years) 04/12/2003 Tdap 06/07/2011 Zoster (Zostavax-ZVL, live) 01/23/2016 Family History Medical History Relation Name Comments Heart Disease Father [place] in his 80s Hyperparathyroidism Mother Diabetes Other 1 none Cancer Other 2 none Relation Name Status Comments Father Mother Other 1 Other 2 Social History Tobacco Use Types Packs/Day Years Used Date Smoking Tobacco: Former Cigarettes Q uit: 03/24/1986 Smokeless Tobacco: Never Tobacco Cessation:Counseling Given: Not Answered Comments:quit 1986 Alcohol Use Standard Drinks/Week Comments Not Currently 0 (1 standard drink = 0.6 oz pur e alcohol) occasional PHQ-2 Answer Date Recorded PHQ-2 TOTAL SCORE 2 05/20/2024 Social Connections Answer Date Recorded Do you often feel lonely or isolated from those around you? 0 05/30/2023 Financial Resource Strain Answer Date R ecorded Difficulty of Paying Living Expenses 3 05/30/2023 Difficulty of Paying Living Expenses Not on file 05/30/2023 Food Insecurity Answer Date Recorded Do you worry your food will run out before you are able to buy more? 1 05/30/2023 Transportation Needs Answer Date Record ed Does lack of transportation keep you from medica l appointments? 1 05/30/2023 Does lack of transportation keep you from work, meetings or getting things that you need? 1 05/30/2023 Housing Stability Answer Date Recorded What is your housing situation today? 1 05/30/2023 Utilities Answer Date Recorded Do you have trouble paying f or utilities (for example, heat, electricity, water, phone)? 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 Not on file Not on file Not on file Obstetrics History Last Filed Vital Signs Vital Sign Reading Time Taken Comments Blood Pressure 113/63 05/20/2024 1:32 PM TIRE MAN Pulse 73 05/20/2024 1:32 PM TIRE MAN Temperature 36.6 C (97.9 F) 12/03/2017 3:17 PM CDT Respiratory Rate - - Oxygen Saturation 94% 11/05/2023 9:23 AM CDT Inhaled Oxygen Concentration - - Weight 128.4 kg (283 lb) 05/20/2024 12:56 PM TIRE MAN Height 167.7 cm (5' 6.02) 05/20/2024 12:[address] Body Mass Index 45.64 05/20/2024 12:56 PM TIRE MAN Plan of Treatment Upcoming Encounters Date Type Department Care Team (Late st Contact Info) Description 08/25/2024 10:00 AM CDT Office Visit [facility] [address] [place] [address] Kajal Lopez, [address] [place] [address] Health Maintenance Due Date Last Done Comments Fecal testing non-DNA (FIT,FOBT,iFOBT) for age 45-75 1999 RSV vaccine for adults or (1 - Risk 60-74 years 1-dose series) 2014 Zoster (shingles) series for age 50+ (2 of 3) 03/19/2016 01/23/2016 Mammogram for age 45-75 07/10/2016 07/11/19 16, 06/07/2011, 05/25/2010, Additional history exists DEXA/DXA scan for age 65+ 2019 Tetanus booster 06/06/2021 06/07/2011, 04/12/2003 COVID-19 vaccine series ( season) 2024 05/20/2024, 04/23/2023, 12/20/2021, Additional history exists BMI (ht and wt on same day) for age 18+ 05/20/2025 05/20/2024, 12/20/2021, 11/30/2020, Additional history exists Depression screening for age 12+ 05/20/2025 05/20/2024, 11/05/2023, 04/24/2023, Additional history exists Medicare Wellness for age 65+ 05/21/2025 05/20/2024, 12/20/2021, 11/30/2020 Lipids for age 45-75 04/23/2028 04/23/2023, 12/20/2021, 11/30/2020, Additional history exists Tdap Completed 06/07/2011 Hepatitis C screening for age 18-79 Completed 11/30/2020 Pneumococcal series for age 50+ Completed 04/23/2023, 11/30/2020 Influenza Vaccine Completed 05/20/2024, , 12/20/2021, Additional history exists Hepatitis B series for 19+ Aged Out N o longer eligible based on patient's age to complete this topic Procedures Procedure Name Priority Date/Time Associated Diagnosis Comments LIPID PANEL W REFLEX MEASURED LDL Routine 04/23/2023 2:41 PM TIRE MAN Hyperlipidemia, unspecified hyperlipidemia type ANTI HCV Routine 11/30/2020 11:41 AM CDT Need for hepatitis C screening test XR MAMMO BILAT SCREEN FFDM (IA) Routine 07/11/2015 10:24 AM CDT Visit for screening mammogram from Last 3 Months or Most Recently Relevant to Health Maintenance Results * (ABNORMAL) LIPID PANEL W REFLEX MEASURED LDL (04/23/2023 2:41 PM TIRE MAN) CHOLESTEROL,TOTAL 112 100 - 199 mg/dL 04/24/2023 10:15 AM TIRE MAN [facility] [employer] Comment: Cholesterol, Total Reference Ranges Desirable <200 mg/dL Borderline 200-239 mg/dL High >=240 mg/dL TRIGLYCERIDES 127 <150 mg/dL 04/24/2023 10:15 AM TIRE MAN [facility] HDL CHOLESTEROL 37(L) >40 mg/dL 10:15 AM TIRE MAN [facility] NON-HDL CHOLESTEROL 75 <145 mg/dl 04/24/2023 10:15 AM TIRE MAN [facility] CHOL/HDL RATIO 3.03 <4.50 04/24/2023 10:15 AM [facility] LDL CHOLESTEROL 50 <=130 mg/dL 04/24/2023 10:15 AM [facility] VLDL CHOLESTEROL 25 <=30 mg/dL 04/24/2023 10:15 AM [facility] PROVIDER ORDERED STATUS RANDOM 04/24/2023 10:15 AM TIRE MAN [facility] Blood BLOOD SPECIMEN / Unknown Venipuncture / Unknown 04/23/2023 2:41 PM TIRE MAN 04/23/2023 2:43 PM TIRE MAN us Kajal Ivy Lopez DO CHEMISTRY Final Resu lt [facility] [address] [place] [address], [place] * ANTI HCV (11/30/2020 11:41 AM CDT) HEPATITIS C ANTIBODY Non-React adin Non-React adin 11/30/2020 6:51 PM CDT [facility] Comment:Antibodies to HCV no t detected; does not exclude the possibility of exposure to HCV. Blood BLOOD SPECIMEN / Unknown Venipuncture / Unknown 11/30/2020 11:41 AM CDT 11/30/2020 11:41 AM CDT us Lisandra MCPHERSON SEND OUTS Final Resu lt Performing Organization Address City/[facility]/ZIP Co de Phone Number [facility] [address] [place] [address], [place] * XR MAMMO BILAT SCREEN FFDM (07/11/2015 10:24 AM CDT) Anatomical Region Laterality Modality BREASTS, Breast Left, Breast Right Bilateral Mammography Impressions 07/11/2015 12:27 PM CDT There is no radiographic evidence for malignancy. Recommend annual mammograms. A lay language report of this examination will be provided to the patient. MAMMOGRAM ASSESSMENT: ACR 2 Benign Narrative 07/11/2015 12:27 PM CDT XR MAMMO BILAT SCREEN FFDM [G0202.0] CLINICAL HISTORY: This is an asymptomatic 60 y.o. patient. INDICATION FOR EXAM: Mammogram Screening. TECHNIQUE: CC & MLO views were obtained. This digital study was evaluated with the assistance of Computer-Aided Detection. COMPARISON FILMS: Yes 06/07/11 [facility] 05/25/10 [facility] FINDINGS: Mammographically, the breast tissue is heterogeneously dense, which could obscure detection of small masses. No suspicious masses or microcalcifications. Benign appearing calcifications within both breasts and Intramammary lymph node within left breast. Lisandra MCPHERSON MAMMO Final Resu lt from Last 3 Months or Most Recently Relevant to Health Maintenance Insurance BLUE [employer] BLUE MR PB ONLY [facility] Care Teams Steak Tenderizer Machine Relationship Specialty Start Date End Date Kajal Lopez DO [address] [place] [address] PCP - General Family Practice 12/31/22
[2024-08-24 20:15] LABS: Appearance Urine Clear (Clear); Bilirubin Urine Negative (Negative); Blood Urine 3+ (Negative); Color Urine Yellow (Yellow); Glucose Urine Negative (Negative); Ketones Urine Negative (Negative); Leukocyte Esterase Urine Trace (Negative); Nitrite Urine Negative (Negative); Protein Urine 2+ (Negative); Specific Gravity Urine >= 1.030 (1.000-1.030); Urobilinogen Urine 0.2 (0.2-1.0)
[2024-08-24 20:17] VITALS: BP 196/182; PULSE 91; RESP 26; TEMP 35.8; O2SAT 93; BMI 48.4
--- NOTE | 2024-08-24 20:24 | ED.FEMALEGU ---
HPI - Female Genitourinary General Time Seen by Provider: 20:25 Date Seen: 08/24/24 Chief complaint: Urogenital Problems, Female Stated complaint: bladder infection Time Seen by Provider: 08/24/24 19:56 Source: patient and RN notes reviewed Mode of arrival: ambulatory Limitations: no limitations History of Present Illness HPI Narrative: This 69-year-old female is coming in with concern of urinary tract infection. She has had increased urinary incontinence, dysuria for couple of days. She thinks she had a fever earlier at home and took some Tylenol. She has had some increase low back pain and neck pain. She states that usually happens to her when she gets urinary tract infection. No trauma. She denies any abdominal pain but has had diminished appetite. No nausea or vomiting. She feels generally weak but is ambulatory here, did bring herself into the ER and is getting to and from the bathroom on her own. She notes the neck pain is general, it is low back pain without going into the legs. No chest pain, no cough or cold symptoms. No difficulty breathing. Related Data Home Medications ?Medication ?Instructions ?Recorded ?Confirmed atenolol 100 mg tablet 100 mg PO DAILY 06/03/23 07/18/23 atorvastatin 20 mg tablet 20 mg PO DAILY 06/03/23 07/18/23 fluoxetine 20 mg capsule 60 mg PO QAM 07/18/23 07/18/23 Previous Rx's ?Medication ?Instructions ?Recorded cyclobenzaprine 10 mg tablet 10 mg PO TID #15 tabs 07/18/23 ketorolac 10 mg tablet 10 mg PO Q8H 5 days #15 tabs 07/18/23 methylprednisolone 4 mg tablets in See Rx Instructions PO .COMPLEX 07/18/23 a dose pack (Medrol (Elias)) #21 ea ondansetron HCl 4 mg tablet 4 mg PO Q6H #20 tabs 07/18/23 cephalexin 500 mg tablet 500 mg PO TID #21 tabs 08/24/24 Allergies Allergy/AdvReac Type Severity Reaction Status Date / Time amoxicillin Allergy Intermediate Unknown Verified 04/20/24 04:58 Review of Systems Status of ROS: Reports: 6 or more systems reviewed and unremarkable except as noted in History and below [facility] Medical History Hyperlipemia ?E78.5 - Hyperlipidemia, unspecified (ICD-10) Tachycardia ?R00.0 - Tachycardia, unspecified (ICD-10) Hypertension ?I10 - Essential (primary) hypertension (ICD-10) Depression ?F32.A - Depression, unspecified (ICD-10) Social History Smoking Status: Former smoker Do you use any of these nicotine containing products: None How often do you have a drink containing alcohol: never AUDIT-C Alcohol total score: 0 Non-prescribed substance use: denies use Exam Const: Vital Signs, click to edit/add: Vital Signs - 24 hr 08/24/24 20:17 08/24/24 20:59 08/24/24 21:20 Temperature 96.5 F L Pulse Rate [Right Pulse Oximeter] 91 73 Respiratory Rate 26 H 16 Blood Pressure [Le ft Upper Arm] 196/182 H 197/119 H 190/95 H Pulse Oximetry 93 94 Oxygen Delivery Me thod Room Air Room Air This 69-year-old female is alert, interactive, no apparent distress. She is morbidly obese, very pleasant but mildly dishevelled. Sclera clear, face atraumatic. Lips are normal but oropharynx looks dry, dentition in poor repair. Lungs are clear, good air entry, no wheezing or crackles, no tachypnea, no accessory muscle use. CV regular rate and rhythm, no murmur, normal S1-S2, no S3-S4. Abdomen is obese but soft, body habitus precludes examination for masses or organomegaly. She certainly has no tenderness, no rebound. Thickened lower extremities without any rash or pitting edema. Documenting provider has reviewed patient's vital signs: yes Course Course ED Course: Having reviewed prior ED visits, do think we should consider looking at some basic labs. Her renal function was mildly diminished on prior results in March. Her lactate has been elevated in the past largely thought due to dehydration. Her blood pressure as a very narrow all range between systolic and diastolic, wonder about the cuff size being appropriate for this patient. She does states she is taking her blood pressure meds at home which is only atenolol reportedly. Nursing staff has collected urinalysis on arrival. Will initiate some IV fluids, check some basic labs. Reevaluation(s) Time of Reevaluation #1: 21:17 Reevaluation #1: I have reviewed with patient that her CBC, lactate in basic metabolic panel are reassuring. Her urinalysis is not definitive for infection, I suspect there could be contamination. She really feels strongly that this is urinary tract infection, she states that she came in earlier because other time she has waited in gotten more ill from them. We certainly are covering her, she did get a dose of IV Rocephin looking through her records in her history, I was presuming that her lactate might be more elevated. It is reassuring however. She will complete her IV fluids in Rocephin and then discharged to home. We will cover with Keflex while we await urine culture. I have asked her to follow up in clinic to review her urinary tract infection issues, recheck blood pressure. We are having some difficulty finding appropriate cuff size for her here in do suspect we may not be getting a correct blood pressure. She is asymptomatic as far as her blood pressure. Vital Signs Vital signs: Initial Vital Signs Temperature 96.5 F L 08/24/24 20:17 Temperature Source Temporal Artery Scan 08/24/24 20:17 Pulse Rate 91 08/24/24 20:17 Respiratory Rate 26 H 08/24/24 20:17 Blood Pressure 196/182 H 08/24/24 20:17 Blood Pressure Mean 186 H 08/24/24 20:17 Blood Pressure Position Semi-Fowlers 08/24/24 20:17 Pulse Oximetry 93 08/24/24 20:17 Oxygen Delivery Method Room Air 08/24/24 20:17 Vital Signs Temperature 96.5 F L 08/24/24 20:17 Pulse Rate 91 08/24/24 20:17 Respiratory Rate 26 H 08/24/24 20:17 Blood Pressure 196/182 H 08/24/24 20:17 Pulse Oximetry 93 08/24/24 20:17 Oxygen Delivery Method Room Air 08/24/24 20:17 Temperature 96.5 F L 08/24/24 20:17 Pulse Rate 73 08/24/24 20:59 Respiratory Rate 16 08/24/24 20:59 Blood Pressure 190/95 H 08/24/24 21:20 Pulse Oximetry 94 08/24/24 20:59 Oxygen Delivery Method Room Air 08/24/24 20:59 Medications Administered Medications: Discontinued Medications Generic Name Dose Route Start Last Admin Trade Name Liz PRN Reason Stop Dose Admin Sodium Chloride 1,000 mls @ 500 mls/hr 08/24/24 20:28 08/24/24 20:47 0.9 % Sodium Chloride 1000 Ml IV 08/24/24 22:27 500 mls/hr .Q2H BHAVIN Administration Ceftriaxone Sodium 1 gm/ 100 mls @ 200 mls/hr 08/24/24 20:43 08/24/24 21:51 Sodium Chloride IVPB 08/24/24 20:44 200 mls/hr ONCE ONE Administration MDM - Female Genitourinary Lab Data Attestation: I reviewed the patient's lab results. Labs: Lab Results 08/24/24 08/24/24 Range/Units 20:05 20:35 WBC 6.71 (4.50-11.00) K/uL RBC 5.07 (4.00-5.20) m/uL Hgb 14.4 (12.0-16.0) gm/dL Hct 43.1 (33.0-51.0) % MCV 85 (80-100) fL MCH 28 (26-34) pg MCHC 33 (32-36) gm/dL RDW Coeff of Jacob 13.0 (11.5-15.5) % Plt Count 209 (140-440) K/uL Neut % (Auto) 71.1 (42.0-72.0) % Lymph % (Auto) 15.4 L (20-44) % [place] % (Auto) 11.8 H (0.0-11.0) % Eos % (Auto) 1.3 (0.0-7.0) % Baso % (Auto) 0.3 (0.0-3.0) % Neut # (Auto) 4.77 (1.7-7.0) K/uL Lymph # (Auto) 1.00 (0.90-2.90) K/uL [place] # (Auto) 0.80 (0.00-0.90) K/UL Eos # (Auto) 0.09 (0.00-0.50) K/uL Baso # (Auto) 0.02 (0.00-0.30) K/uL Abs Immat Gran (auto) 0.01 (0.00-0.30) K/uL Imm/Tot Granulo (auto) 0.1 % Sodium 137 (135-149) mmol/L Potassium 4.0 (3.6-5.1) mmol/L Chloride 106 (96-114) mmol/L Carbon Dioxide 25 (20-32) mmol/L Anion Gap 6 L (7-15) mEq/L BUN 22 (7-30) mg/dL Creatinine 0.7 (0.5-1.5) mg/dL Estimated Creat Clear 49.00 Estimated GFR 93 ml/min Glucose 116 H (60-115) mg/dL Lactate 1.8 (0.5-1.9) mmol/L Calcium 9.5 (8.4-10.6) mg/dL Urine Color Yellow (Yellow) Urine Appearance Clear (Clear) Urine pH 6.0 (5.0-8.5) Ur Specific Bonham >= 1.030 (1.000-1.030) Urine Protein 2+ A (Negative) Urine Glucose (UA) Negative (Negative) Urine Ketones Negative (Negative) Urine Blood 3+ A (Negative) Urine Nitrite Negative (Negative) Urine Bilirubin Negative (Negative) Urine Urobilinogen 0.2 (0.2-1.0) Ur Leukocyte Esterase Trace A (Negative) Urine RBC 10-25 A (0-2) Urine WBC 5-10 A (0-5) Ur Squamous Epith Cells Moderate A (None-Few) Urine Bacteria Few A (None) Discharge Plan Discharge Clinical Impression: Dysuria Patient Disposition: Home, Self-Care Condition: Stable Instructions: Dysuria (ED), Urinary Tract Infection in Older Adults (ED) Additional Instructions: Start the antibiotic tomorrow morning and take as prescribed. You were given IV dose of antibiotic here tonight. We will await the urine culture but will start treatment given your symptoms. Your labs are reassuring. Her blood pressure was elevated here, do recommend follow up in clinic with your primary care provider within the next 1-2 weeks for recheck of your symptoms including your blood pressure. If your blood pressure is remaining elevated, you may need further medications for hypertension. This is why you need to follow-up with your primary clinic. Your blood pressure can be falsely elevated in the ER which makes it important to follow up in clinic to recheck it when you are feeling better and not under the stress of being in the ER. If you are not improving, feel you are worsening or have new or concerning symptoms, please seek re-evaluation. Activity Level: Activity as Tolerated Prescriptions: New cephalexin 500 mg tablet 500 mg PO TID Qty: 21 0RF No Action atorvastatin 20 mg tablet 20 mg PO DAILY atenolol 100 mg tablet 100 mg PO DAILY fluoxetine 20 mg capsule 60 mg PO QAM cyclobenzaprine 10 mg tablet 10 mg PO TID Qty: 15 0RF ondansetron HCl 4 mg tablet 4 mg PO Q6H Qty: 20 0RF ketorolac 10 mg tablet 10 mg PO Q8H 5 Days Qty: 15 0RF methylprednisolone [Medrol (Elias)] 4 mg tablets,dose pack See Rx Instructions .ROUTE .COMPLEX Qty: 21 0RF Rx Instructions: orally per package directions Follow Up/Referrals: Kajal Lopez DO [Primary Care Provider, Family Practice] Stand Alone [facility]: [facility] Info Instructions
[2024-08-24 20:25] LABS: Bacteria Urine Few; Squamous Epithelial Cell Urine Moderate (None-Few)
[2024-08-24 20:42] LABS: Lactate* 1.8 mmol/L (0.5-1.9)
[2024-08-24 20:43] LABS: Basophils Absolute Auto 0.02 K/uL (0.00-0.30); Basophils Percent Auto 0.3 % (0.0-3.0); Eosinophils Absolute Auto 0.09 K/uL (0.00-0.50); Eosinophils Percent Auto 1.3 % (0.0-7.0); Hematocrit* 43.1 % (33.0-51.0); Hemoglobin* 14.4 gm/dL (12.0-16.0); Immature Granulocytes Abs Auto 0.01 K/uL (0.00-0.30); Immature Granulocytes Pct Auto 0.1 %; Lymphocytes Percent Auto 15.4 % (20-44); Mean Corpuscular HGB Conc 33 gm/dL (32-36); Mean Corpuscular Hemoglobin 28 pg (26-34); Mean Corpuscular Volume 85 fL (80-100); Monocytes Percent Auto 11.8 % (0.0-11.0); Neutrophils Absolute Auto 4.77 K/uL (1.7-7.0); Neutrophils Percent Auto 71.1 % (42.0-72.0); Platelet Count* 209 K/uL (140-440); Red Blood Count* 5.07 m/uL (4.00-5.20); White Blood Count* 6.71 K/uL (4.50-11.00)
[2024-08-24] MEDS: 0.9 % SODIUM CHLORIDE 1000 ml 1,000 ML 500 ML IV (20:47)
[2024-08-24 20:59] VITALS: BP 197/119; PULSE 73; RESP 16; O2SAT 94
[2024-08-24 21:03] LABS: Chloride* 106 mmol/L (96-114); Sodium* 137 mmol/L (135-149)
[2024-08-24 21:06] LABS: Anion Gap 6 mEq/L (7-15); Blood Urea Nitrogen* 22 mg/dL (7-30); Calcium* 9.5 mg/dL (8.4-10.6); Carbon Dioxide* 25 mmol/L (20-32); Creatinine* 0.7 mg/dL (0.5-1.5); Estimated Glomerular Filt Rate 93 ml/min; Glucose* 116 mg/dL (60-115)
[2024-08-24 21:11] LABS: Slide Review Reflex No
[2024-08-24 21:20] VITALS: BP 190/95
[2024-08-24] MEDS: cefTRIAXone 1 GM in 0.9 % SODIUM CHLORIDE Mini-bag 100 ML IVPB (21:51)
== END 2024-08-24 21:51 | disposition home or self-care (01) ==
PROVIDERS: Emergency Provider Family Medicine; PCP Family Medicine
DX: R30.0 Dysuria (principal); M54.50 Low back pain, unspecified; M54.2 Cervicalgia; R53.1 Weakness
CPT/HCPCS: 36415; 80048; 81001; 83605; 85025; 87086; 96374; 99284; J0696; J7030

== ENCOUNTER 2025-01-06 15:56 | Outpatient (CLI) | payer MEDICARE, BC, SELFPAY | END 2025-01-06 15:57 | disposition home or self-care (01) | LOC: AMB 01-08 04:45 | PROVIDERS: PCP Family Medicine; Visit Provider Student in an Organized Health Care Education/Training Program | DX: S09.93XA Unspecified injury of face, initial encounter (principal); W18.30XA Fall on same level, unspecified, initial encounter; Y92.414 Local residential or business street as the place of occurrence of the external cause | CPT/HCPCS: A0425; A0433 ==

== ENCOUNTER 2025-01-06 16:27 | Emergency (ER) | payer MEDICARE, BC, SELFPAY ==
--- OUTSIDE RECORDS SUMMARY | 2025-01-06 16:30 | XMS_ITS | Clinical Summary ---
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 Gender Identity Not on file Sexual Orientation Not on file Occupation 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 Not on file Not on file Not on file Obstetrics History Last Filed Vital Signs Vital Sign Reading Time Taken Comments Blood Pressure 113/63 05/20/2024 1:32 PM COLD MOLDING PRESS OPERATOR Pulse 73 05/20/2024 1:32 PM COLD MOLDING PRESS OPERATOR Temperature 36.6 C (97.9 F) 12/03/2017 3:17 PM CDT Respiratory Rate - - Oxygen Saturation 94% 11/05/2023 9:23 AM CDT Inhaled Oxygen Concentration - - Weight 128.4 kg (283 lb) 05/20/2024 12:56 PM COLD MOLDING PRESS OPERATOR Height 167.7 cm (5' 6.02) 05/20/2024 12:[address] Body Mass Index 45.64 05/20/2024 12:56 PM COLD MOLDING PRESS OPERATOR Plan of Treatment Health Maintenance Due Date Last Done Comments [...] 2024 05/20/2024, 04/23/2023, 12/20/2021, Additional history exists Influenza Vaccine (#1) 2024 , 04/23/2023, 12/20/2021, Additional history exists BMI (ht and wt on same day) for age 18+ 05/20/2025 05/20/2024, 12/20/2021, 11/30/2020, Additional history exists Depression screening for age 12+ 05/20/2025 05/20/2024, 11/05/2023, 04/24/2023, Additional history exists Medicare Wellness for age 65+ 05/21/2025 05/20/2024, 12/20/2021, 11/30/2020 Lipids for age 45-75 04/23/2028 04/23/2023, 12/20/2021, 11/30/2020, Additional history exists Hepatitis C screening for age 18-79 Completed 11/30/2020 Pneumococcal series for age 50+ Completed 04/23/2023, 11/30/2020 Hepatitis B series for 19+ Aged Out N o longer eligible based on patient's age to complete this topic Procedures Procedure Name Priority Date/Time Associated Diagnosis Comments LIPID PANEL W REFLEX MEASURED LDL Routine 04/23/2023 2:41 PM COLD MOLDING PRESS OPERATOR Hyperlipidemia, unspecified hyperlipidemia type ANTI HCV Routine 11/30/2020 11:41 AM CDT Need for hepatitis C screening test XR MAMMO BILAT SCREEN FFDM (IA) Routine 07/11/2015 10:24 AM CDT Visit for screening mammogram from Last 3 Months or Most Recently Relevant to Health Maintenance Results * (ABNORMAL) LIPID PANEL W REFLEX MEASURED LDL (04/23/2023 2:41 PM COLD MOLDING PRESS OPERATOR) CHOLESTEROL,TOTAL 112 100 - 199 mg/dL 04/24/2023 10:15 AM COLD MOLDING PRESS OPERATOR [facility] Comment: Cholesterol, Total Reference Ranges Desirable <200 mg/dL Borderline 200-239 mg/dL High >=240 mg/dL TRIGLYCERIDES 127 <150 mg/dL 04/24/2023 10:15 AM COLD MOLDING PRESS OPERATOR [facility] HDL CHOLESTEROL 37(L) >40 mg/dL 10:15 AM COLD MOLDING PRESS OPERATOR [facility] NON-HDL CHOLESTEROL 75 <145 mg/dl 04/24/2023 10:15 AM COLD MOLDING PRESS OPERATOR [facility] CHOL/HDL RATIO 3.03 <4.50 04/24/2023 10:15 AM COLD MOLDING PRESS OPERATOR [facility] LDL CHOLESTEROL 50 <=130 mg/dL 04/24/2023 10:15 AM COLD MOLDING PRESS OPERATOR [facility] VLDL CHOLESTEROL 25 <=30 mg/dL 04/24/2023 10:15 AM COLD MOLDING PRESS OPERATOR [facility] PROVIDER ORDERED STATUS RANDOM 04/24/2023 10:15 AM COLD MOLDING PRESS OPERATOR [facility] Blood BLOOD SPECIMEN / Unknown Venipuncture / Unknown 04/23/2023 2:41 PM COLD MOLDING PRESS OPERATOR 04/23/2023 2:43 PM COLD MOLDING PRESS OPERATOR us Kajal Lopez DO CHEMISTRY Final Resu lt [facility] [address] [place] [address], * ANTI HCV (11/30/2020 11:41 AM CDT) HEPATITIS C ANTIBODY Non-React adin Non-React adin 11/30/2020 6:51 PM CDT [facility] Comment:Antibodies to HCV no t detected; does not exclude the possibility of exposure to HCV. Blood BLOOD SPECIMEN / Unknown Venipuncture / Unknown 11/30/2020 11:41 AM CDT 11/30/2020 11:41 AM CDT Lisandra MCPHERSON SEND OUTS Final Resu lt [facility] [address] [place] [address], [place] * XR MAMMO BILAT SCREEN FFDM [...] of Computer-Aided Detection. COMPARISON FILMS: Yes 06/07/11 [facility] 05/25/10 [facility] FINDINGS: Mammographically, the breast tissue is heterogeneously dense, which could obscure detection of small masses. No suspicious masses or microcalcifications. Benign appearing calcifications within both breasts and Intramammary lymph node within left breast. Lisandra MCPHERSON MAMMO Final Resu lt from Last 3 Months or Most Recently Relevant to Health Maintenance Insurance [employer] [place] BL[employer] MR PB ONLY [facility] Care Teams Automatic Drill Operator Relationship Specialty Start Date End Date Kajal Lopez DO [address] [place] [address] PCP - General Family Practice 12/31/22
[2025-01-06 16:38] VITALS: BP 167/92; PULSE 72; RESP 20; TEMP 36.2; O2SAT 96
--- NOTE | 2025-01-06 16:57 | ED.FALL ---
HPI - Fall General Date Seen: 01/06/25 Chief Complaint: Fall/Minor Trauma Stated Complaint: Fall Time Seen by Provider: 01/06/25 16:30 Source: patient Mode of arrival: EMS Limitations: no limitations History of Present Illness HPI Narrative: Patient is a 69 year old female presenting to the emergency department after a fall. She states she was walking over rest from she tripped and fell and hit her face on the ground. Feels states she hurt her right knee. States she has some nausea night has no she has chronic neck pain. She was brought in by EMS. Denies any lightheadedness or dizziness before or after the fall. Does states she has some forehead pain were abrasions are. Also has pain to right knee where her abrasions are. Is able to move the knee. Denies any other concerns. States she did not knocked out any teeth from the fall. States she is not on any blood thinners. Denies loss of consciousness. Related Data Home Medications ?Medication ?Instructions ?Recorded ?Confirmed atenolol 100 mg tablet 100 mg PO DAILY 06/03/23 01/06/25 atorvastatin 20 mg tablet 20 mg PO DAILY 06/03/23 01/06/25 fluoxetine 20 mg capsule 60 mg PO QAM 07/18/23 01/06/25 losartan 50 mg tablet 50 mg PO DAILY 01/06/25 01/06/25 Allergies Allergy/AdvReac Type Severity Reaction Status Date / Time amoxicillin Allergy Intermediate Unknown Verified 01/06/25 16:34 Review of Systems Status of ROS: Reports: 10 or more systems reviewed and unremarkable except as noted in History and below [facility] Medical History Hyperlipemia ?E78.5 - Hyperlipidemia, unspecified (ICD-10) Tachycardia ?R00.0 - Tachycardia, unspecified (ICD-10) Hypertension ?I10 - Essential (primary) hypertension (ICD-10) Depression ?F32.A - Depression, unspecified (ICD-10) Social History Smoking Status: Former smoker Do you use any of these nicotine containing products: None How often do you have a drink containing alcohol: never AUDIT-C Alcohol total score: 0 Non-prescribed substance use: denies use Exam Narrative: Exam Narrative: Const: Well-nourished, Well-developed, in no distress Eyes: PERRL, no conjunctival injection, and symmetrical lids HENT: Atraumatic external nose and ears. Moist mucous membranes. Poor dentition. No palpable skull fractures. Abrasion noted to left forehead Neck: Symmetric, trachea midline, No thyromegaly. CVS: RRR, No murmurs or gallops. Peripheral pulses 2+ and equal in all extremities RESP: Unlabored respiratory effort. Clear to auscultation bilaterally. GI: Nontender/Nondistended, No rebound or guarding. MSK:Extremities w/o deformity, Normal Active ROM, abrasion noted to right knee. No tenderness noted to the knee. No tenderness noted to chest wall or hips. No tenderness noted to the rest of her extremities. No midline cervical tenderness. Skin: Warm, Dry. No rashes or lesions. Neuro: Normal Muscle tone, No focal neurological deficits. Psych: Awake, Alert, & Oriented x3. Appropriate mood and affect. Const: Vital Signs, click to edit/add: Vital Signs - 24 hr 01/06/25 16:38 01/06/25 17:14 01/06/25 17:16 Temperature 97.1 F L Pulse Rate 66 67 Pulse Rate [Pulse Oximeter] 72 Respiratory Rate 20 Blood Pressure Blood Pressure [Ri ght Forearm] 167/92 H Pulse Oximetry 96 95 Oxygen Delivery Me thod Room Air 01/06/25 17:17 01/06/25 17:18 Temperature Pulse Rate 66 64 Pulse Rate [Pulse Oximeter] Respiratory Rate 16 Blood Pressure 159/102 H Blood Pressure [Ri ght Forearm] Pulse Oximetry 96 94 Oxygen Delivery Me thod Course Vital Signs Vital signs: Initial Vital Signs Temperature 97.1 F L 01/06/25 16:38 Temperature Source Temporal Artery Scan 01/06/25 16:38 Pulse Rate 72 01/06/25 16:38 Respiratory Rate 20 01/06/25 16:38 Blood Pressure 167/92 H 01/06/25 16:38 Blood Pressure Mean 117 H 01/06/25 16:38 Pulse Oximetry 96 01/06/25 16:38 Oxygen Delivery Method Room Air 01/06/25 16:38 Vital Signs Temperature 97.1 F L 01/06/25 16:38 Pulse Rate 72 01/06/25 16:38 Respiratory Rate 20 01/06/25 16:38 Blood Pressure 167/92 H 01/06/25 16:38 Pulse Oximetry 96 01/06/25 16:38 Oxygen Delivery Method Room Air 01/06/25 16:38 Temperature 97.1 F L 01/06/25 16:38 Pulse Rate 64 01/06/25 17:18 Respiratory Rate 16 01/06/25 17:18 Blood Pressure 159/102 H 01/06/25 17:17 Pulse Oximetry 94 01/06/25 17:18 Oxygen Delivery Method Room Air 01/06/25 16:38 MDM - Fall MDM Narrative Medical decision making narrative: Patient is a 69-year-old female presenting to the emergency department after a fall. Based on description this sounds can not can call fall with no associated lightheadedness or dizziness prior to or after the fall. She has some mild right knee pain but this just over the abrasions and no pain to the actual knee joint. She did hit her face and has notable abrasion to her left forehead. She is unsure when her last tetanus was and that Tdap will be updated. Considering the fall will do CT scan of her head, facial bones, cervical spine. Is not requesting any pain medication. She is not on any blood thinners Patient's CT scans reviewed by myself and the radiologist showed no acute concerning abnormalities. Patient is feeling well at this time and feels safe for discharge. She will be discharged. Imaging Data CT scan head: Attestation: I have reviewed the pertinent imaging results. Radiologist's impression: 1. No evidence of acute infarction, intracranial hemorrhage, or mass-effect seen. Dictated by Carrillo Wolff MD @ 01/06/2025 6:07:11 PM Please note that all CT scans at this facility use dose modulation, iterative reconstruction, and/or weight-based dosing when appropriate to reduce radiation dose to as low as reasonably achievable. Dictated by: Carrillo Wolff MD @ 01/06/2025 18:07:13 CT scan cervical spine: Attestation: I have reviewed the pertinent imaging results. Radiologist's impression: 1. No acute osseous injuries are identified. 2. There is a hypodense nodule in the inferior left thyroid lobe measuring 1 cm. Further assessment with outpatient thyroid ultrasound is recommended. Dictated by Carrillo Wolff MD @ 01/06/2025 6:14:11 PM Please note that all CT scans at this facility use dose modulation, iterative reconstruction, and/or weight-based dosing when appropriate to reduce radiation dose to as low as reasonably achievable. Dictated by: Carrillo Wolff MD @ 01/06/2025 18:14:50 CT scan facial bones: Attestation: I have reviewed the pertinent imaging results. Radiologist's impression: 1. No acute osseous injuries or abnormalities are seen. Dictated by Carrillo Wolff MD @ 01/06/2025 6:11:34 PM Please note that all CT scans at this facility use dose modulation, iterative reconstruction, and/or weight-based dosing when appropriate to reduce radiation dose to as low as reasonably achievable. Dictated by: Carrillo Wolff MD @ 01/06/2025 18:11:49 Discharge Plan Discharge Clinical Impression: Abrasion Closed head injury Qualifiers: Encounter type: initial encounter Qualified Code(s): S09.90XA - Unspecified injury of head, initial encounter Patient Disposition: Home, Self-Care Condition: Stable Instructions: Head Injury (DC) Additional Instructions: Take Tylenol and ibuprofen for pain. Return to emergency department for new or worsening symptoms. Prescriptions: No Action atorvastatin 20 mg tablet 20 mg PO DAILY atenolol 100 mg tablet 100 mg PO DAILY losartan 50 mg tablet 50 mg PO DAILY fluoxetine 20 mg capsule 60 mg PO QAM Follow Up/Referrals: Kajal Lopez DO [Primary Care Provider, Family Practice] [facility] Info Inst[facility]
--- NOTE | 2025-01-06 17:00 | CRLHL7_ITS ---
For Patients: As a result of the Cures Act, medical imaging exams and procedure reports are released immediately into your electronic medical record. You may view this report before your referring provider. If you have questions, please contact your health care provider. INDICATION: Fall, abrasion to forehead, cervical spine injury TECHNIQUE: CT cervical spine without i.v. contrast. Coronal and sagittal reformats were obtained. COMPARISON: None FINDINGS: Alignment: Straightening of the cervical spine is noted. Bone: No acute fractures or aggressive bone lesions are identified. Disc: Moderate degenerative disc narrowing is present at C4-5. Severe degenerative disc disease is present at C5-6 and C6-7. Scattered facet osteoarthritis is noted bilaterally. Soft tissue: Bilateral jugular and submandibular lymph nodes are present measuring up to 9 mm. There is a hypodense nodule in the inferior left thyroid lobe measuring 1 cm. The visualized lung apices and mediastinum are unremarkable. IMPRESSIONS: 1. No acute osseous injuries are identified. 2. There is a hypodense nodule in the inferior left thyroid lobe measuring 1 cm. Further assessment with outpatient thyroid ultrasound is recommended. Dictated by Carrillo Wolff MD @ 01/06/2025 6:14:11 PM Please note that all CT scans at this facility use dose modulation, iterative reconstruction, and/or weight-based dosing when appropriate to reduce radiation dose to as low as reasonably achievable. Dictated by: Carrillo Wolff MD @ 01/06/2025 18:14:50 (Electronically Signed)
--- NOTE | 2025-01-06 17:00 | CRLHL7_ITS ---
For Patients: As a result of the Century Cures Act, medical imaging exams and procedure reports are released immediately into your electronic medical record. You may view this report before your referring provider. If you have questions, please contact your health care provider. INDICATION: Fall, abrasion to forehead, face injury- TECHNIQUE: CT maxillofacial without i.v. contrast. Coronal and sagittal reformats were obtained. COMPARISON: None FINDINGS: Bone: Multiple dental cavities and small periodontal abscesses are present in the maxillary and mandibular teeth. No acute fractures or aggressive bone lesions are identified. Joint: The temporomandibular joints are unremarkable in appearance. Sinus: The sinuses are well-aerated with no significant mucosal thickening or retained secretions seen. The ostiomeatal units are patent. The nasal turbinates are normal. The nasal septum is midline and intact. Orbit: The visualized orbits are grossly unremarkable. Soft tissue: Mild subcutaneous edema and swelling is noted in the left frontal region. Jugular, submandibular and submental lymph nodes are present measuring up to 9 mm. IMPRESSION: 1. No acute osseous injuries or abnormalities are seen. Dictated by Carrillo Wolff MD @ 01/06/2025 6:11:34 PM Please note that all CT scans at this facility use dose modulation, iterative reconstruction, and/or weight-based dosing when appropriate to reduce radiation dose to as low as reasonably achievable. Dictated by: Carrillo Wolff MD @ 01/06/2025 18:11:49 (Electronically Signed)
--- NOTE | 2025-01-06 17:00 | CRLHL7_ITS ---
For Patients: As a result of the Cures Act, medical imaging exams and procedure reports are released immediately into your electronic medical record. You may view this report before your referring provider. If you have questions, please contact your health care provider. INDICATION: Fall, abrasion to forehead, head injury TECHNIQUE: CT Head without i.v. contrast. Coronal and sagittal reformats were obtained. COMPARISON: None FINDINGS: CSF space: Unremarkable for age. Brain: A tiny chronic lacunar infarct is present in the left basal ganglia. No mass-effect or midline shift is seen. Mild diffuse cortical atrophy is noted. Calvarium: The visualized paranasal sinuses are well aerated. The mastoid air cells are clear. The visualized orbits are grossly unremarkable. The calvarium is unremarkable in appearance with no fractures identified. IMPRESSION: 1. No evidence of acute infarction, intracranial hemorrhage, or mass-effect seen. Dictated by Carrillo Wolff MD @ 01/06/2025 6:07:11 PM Please note that all CT scans at this facility use dose modulation, iterative reconstruction, and/or weight-based dosing when appropriate to reduce radiation dose to as low as reasonably achievable. Dictated by: Carrillo Wolff MD @ 01/06/2025 18:07:13 (Electronically Signed)
[2025-01-06 17:14] VITALS: PULSE 66
[2025-01-06 17:16] VITALS: PULSE 67; O2SAT 95
[2025-01-06 17:17] VITALS: BP 159/102; PULSE 66; O2SAT 96
[2025-01-06 17:18] VITALS: PULSE 64; RESP 16; O2SAT 94
[2025-01-06] MEDS: TETANUS/DIPHTH/PERTUSSIS 0.5 ML SYRINGE IM (18:42)
== END 2025-01-06 18:50 | disposition home or self-care (01) ==
PROVIDERS: Emergency Provider Student in an Organized Health Care Education/Training Program; PCP Family Medicine
DX: S09.90XA Unspecified injury of head, initial encounter (principal); S80.211A Abrasion, right knee, initial encounter; E04.1 Nontoxic single thyroid nodule; W01.0XXA Fall on same level from slipping, tripping and stumbling without subsequent striking against object, initial encounter; Y93.01 Activity, walking, marching and hiking
CPT/HCPCS: 70450; 70486; 72125; 90715; 99284; 99285